=== PATIENT | male | born 1945 | race Caucasian/White ===

== ENCOUNTER 2017-09-01 16:31 | Emergency (ER) | payer MEDICARE, OTHER ==
--- NOTE | 2017-09-01 17:33 | ED Physician Documentation ---
PD HPI URI - Stated complaint Stated Complaint: FEVER,COUGH,BODY ACHES - Chief complaint Chief Complaint: Resp - History obtained from History obtained from: Patient - History of Present Illness Timing - onset: How many weeks ago (2) Timing duration: Weeks (2) Timing details: Gradual onset, Still present (has had cough and congestion for 2 weeks and seen by PCP and got Rx for Zpack (no other meds) and is feeling worse, not improved.) Associated symptoms: Productive cough, Dyspnea. No: Fever, Sore throat, Hemoptysis, NVD Contributing factors: No: Sick contact, Travel, Immunocompromised Similar symptoms before: Has not had sx before Recently seen: Clinic Review of Systems Constitutional: reports: Myalgias, Fatigue. denies: Fever, Weight Loss Nose: reports: Congestion. denies: Rhinorrhea / runny nose Throat: denies: Sore throat Cardiac: denies: Chest pain / pressure, Palpitations Respiratory: reports: Dyspnea, Cough. denies: Wheezing GI: denies: Nausea, Vomiting, Diarrhea Musculoskeletal: denies: Extremity swelling Neurologic: reports: Generalized weakness. denies: Focal weakness, Numbness, Near syncope PD PAST MEDICAL HISTORY - Past Medical History Past Medical History: Yes Cardiovascular: Coronary artery disease, [place] Respiratory: Pneumonia - Past Surgical History Past Surgical History: Yes General: Other Cardiovascular: Coronary stent - Present Medications Home Medications: Ambulatory Orders Medication Instructions Recorded Confirmed Atorvastatin Calcium 40 mg PO DAILY 05/21/15 05/21/15 Carvedilol [Coreg] 6.25 mg PO BID 05/21/15 05/21/15 Clopidogrel [Plavix] 75 mg PO DAILY 05/21/15 05/21/15 Albuterol Sulf [Ventolin Hfa 1 - 2 puffs INH Q4HR PRN #1 inhaler 09/01/17 Inhaler] Apixaban [Eliquis] 5 mg BID 09/01/17 09/01/17 Dexamethasone [Decadron] 4 mg PO DAILY #5 tablet 09/01/17 Doxycycline Monohydrate 100 mg PO BID #14 tablet 09/01/17 guaiFENesin/CODEINE [Robitussin AC] 10 ml PO Q6H PRN #240 ml 09/01/17 - Allergies Allergies/Adverse Reactions: Allergies Allergy/AdvReac Type Severity Reaction Status Date / Time No Known Drug Allergies Allergy Verified 05/21/15 06:44 - Social History Does the pt smoke?: No Smoking Status: Never smoker Does the pt drink ETOH?: Yes Does the pt have substance abuse?: Yes Substance Use and Type: Marijuana - Immunizations Immunizations are current?: Yes - POLST Patient has POLST: No PD ED PE NORMAL - Vitals Vital signs reviewed: Yes - General General: Alert and oriented X 3, No acute distress, Well developed/nourished - HEENT HEENT: Ears normal, Moist mucous membranes, Pharynx benign - Neck Neck: Supple, no meningeal sign, No adenopathy - Cardiac Cardiac: RRR, No murmur - Respiratory Respiratory: Clear bilaterally - Abdomen Abdomen: Soft, Non tender - Derm Derm: Normal color, Warm and dry - Extremities Extremities: No deformity, No tenderness to palpate, Normal ROM s pain, No edema , No calf tenderness / cord - Neuro Neuro: Alert and oriented X 3, No motor deficit, Normal speech Results - Vitals Vitals: Oxygen O2 Source Room air - Rads (name of study) chest xray Radiology: Prelim report reviewed, EMP read contemporaneously (no pneumonia) PD MEDICAL DECISION MAKING - ED course Complexity details: reviewed results (no pneumonia), considered differential, d/ w patient Departure - Departure Disposition: 01 Home, Self Care Clinical Impression: Upper respiratory infection Qualifiers: URI type: unspecified URI Qualified Code(s): J06.9 - Acute upper respiratory infection, unspecified Condition: Stable Record reviewed to determine appropriate education?: Yes Instructions: ED Upper Resp Infec Abx Tx Prescriptions: Albuterol Sulf [Ventolin Hfa Inhaler] 1 - 2 puffs INH Q4HR PRN #1 inhaler PRN Reason: Shortness Of Air/Wheezing Dexamethasone [Decadron] 4 mg PO DAILY #5 tablet Doxycycline Monohydrate 100 mg PO BID #14 tablet guaiFENesin/CODEINE [Robitussin AC] 10 ml PO Q6H PRN #240 ml PRN Reason: Cough Comments: Use albuterol inhaler 2-3 puffs 4 times a day the next 7-10 days and extra doses as needed for wheezing and cough. Cough medicine as needed. Decadron steroid anti-inflammatory to decrease irritation of the bronchioles daily for 5 more days. This will help the coughing and breathing. Doxycycline twice daily for a week for potential bacterial infection. Recheck if not improving over the next several days to week. Discharge Date/Time: 09/01/17 19:09
[2017-09-01] MEDS ORDERED: ALBUTEROL NEB 2.5 MG/3 ML INH STA (17:52)
[2017-09-01] MEDS ORDERED: DEXAMETHASONE 10 MG/ML VIAL PO STA (17:52)
[2017-09-01] MEDS ORDERED: BENZONATATE 100 MG CAPSULE PO STA (17:52)
[2017-09-01 18:36] VITALS: BP 151/94
--- NOTE | 2017-09-01 18:38 | XRAY Preliminary Report ---
Exam: XR CHEST 2 VIEW X-RAY IMPRESSION: Normal 2-view chest radiography. [facility] SITE ID: [id number]
--- NOTE | 2017-09-01 18:59 | XRAY Report ---
EXAM: CHEST RADIOGRAPHY EXAM DATE: 09/01/2017 06:21 PM. CLINICAL HISTORY: Cough and dyspnea. COMPARISON: 05/21/2015. TECHNIQUE: 2 views. FINDINGS: Lungs/Pleura: No focal opacities evident. No pleural effusion. No pneumothorax. Normal volumes. Mediastinum: Heart and mediastinal contours are unremarkable. Other: None. IMPRESSION: Normal 2-view chest radiography. [facility] Referring Provider Line: [phone] SITE ID: [id number]
== END 2017-09-01 19:09 | disposition home or self-care (01) ==
LOC: ED 16:31
DX: J06.9 Acute upper respiratory infection, unspecified (principal); I25.10 Atherosclerotic heart disease of native coronary artery without angina pectoris; I25.2 Old myocardial infarction; Z79.01 Long term (current) use of anticoagulants
CPT/HCPCS: 71046; 94640; 94664; 99283; A9270

== ENCOUNTER 2019-12-10 08:00 | Outpatient (CLI) | payer MEDICARE, OTHER | END 2019-12-10 23:59 | disposition home or self-care (01) | LOC: LAB.WCP 08:00 | PROVIDERS: ATTEND Family Medicine | DX: R10.9 Unspecified abdominal pain (principal) | CPT/HCPCS: 81002 ==

== ENCOUNTER 2019-12-10 11:00 | Emergency (ER) | payer MEDICARE, OTHER ==
--- NOTE | 2019-12-10 11:05 | ED Physician Documentation ---
PD HPI ABD PAIN - Stated complaint Stated Complaint: MALE - History obtained from History obtained from: Patient - History of Present Illness Timing - onset: How many days ago (few) Timing - duration: Days (few) Timing - details: Gradual onset, Still present Quality: Cramping, Aching, Pain Location: Suprapubic, LLQ Radiation: No: Chest, Lower back Improved by: No: Eating, BM Worsened by: Moving, Palpation. No: Eating Associated symptoms: Nausea. No: Fever, Vomiting, Diarrhea, Constipation Similar symptoms before: Has not had sx before Review of Systems Constitutional: denies: Fever, Chills Nose: denies: Rhinorrhea / runny nose, Congestion Throat: denies: Sore throat Respiratory: denies: Cough GI: reports: Abdominal Pain, Nausea. denies: Vomiting, Constipation, Diarrhea Skin: denies: Rash, Lesions PD PAST MEDICAL HISTORY - Past Medical History Cardiovascular: Coronary artery disease, [place] Respiratory: Pneumonia - Past Surgical History Past Surgical History: Yes General: Other Cardiovascular: Coronary stent - Present Medications Home Medications: Ambulatory Orders Medication Instructions Recorded Confirmed Atorvastatin Calcium 40 mg PO DAILY 05/21/15 05/21/15 Carvedilol [Coreg] 6.25 mg PO BID 05/21/15 05/21/15 Clopidogrel [Plavix] 75 mg PO DAILY 05/21/15 05/21/15 Albuterol Sulf [Ventolin Hfa 1 - 2 puffs INH Q4HR PRN #1 inhaler 09/01/17 Inhaler] Apixaban [Eliquis] 5 mg BID 09/01/17 09/01/17 Doxycycline Monohydrate 100 mg PO BID #14 tablet 09/01/17 dexAMETHasone [Decadron] 4 mg PO DAILY #5 tablet 09/01/17 guaiFENesin/CODEINE [Robitussin AC] 10 ml PO Q6H PRN #240 ml 09/01/17 Cephalexin [Keflex] 500 mg PO TID #21 capsule 12/10/19 Oxycodone HCl 5 mg PO Q4H PRN #20 tablet 12/10/19 metroNIDAZOLE [Flagyl] 500 mg PO BID #14 tablet 12/10/19 - Allergies Allergies/Adverse Reactions: Allergies Allergy/AdvReac Type Severity Reaction Status Date / Time No Known Drug Allergies Allergy Verified 12/10/19 11:10 - Social History Does the pt smoke?: No Smoking Status: Never smoker Does the pt drink ETOH?: Yes Does the pt have substance abuse?: Yes - Immunizations Immunizations are current?: Yes - POLST Patient has POLST: No PD ED PE NORMAL - Vitals Vital signs reviewed: Yes - General General: Alert and oriented X 3, Well developed/nourished, Other (does appear uncomfortable) - HEENT HEENT: Pharynx benign - Neck Neck: Supple, no meningeal sign, No adenopathy - Cardiac Cardiac: RRR, No murmur - Respiratory Respiratory: Clear bilaterally - Abdomen Abdomen: Normal bowel sounds, Soft, Non distended, No organomegaly, Other (Under in the left lower quadrant and suprapubic area with some local guarding and mild percussion tenderness but no rebound. No referred tenderness to the rest of the abdomen. No CVA tenderness.) - Male Male : Deferred - Rectal Rectal: Deferred - Back Back: No CVA TTP - Derm Derm: Normal color, Warm and dry, No rash - Extremities Extremities: Normal ROM s pain, No edema, No calf tenderness / cord - Neuro Neuro: Alert and oriented X 3, No motor deficit, Normal speech Results - Vitals Vitals: Vital Signs - 24 hr 12/10/19 12/10/19 12/10/19 11:10 12:00 13:00 Temperature 36.5 C Heart Rate 100 69 68 Respiratory 18 14 14 Rate Blood Pressure 144/80 H 124/71 137/82 H O2 Saturation 100 100 99 12/10/19 13:30 Temperature Heart Rate 61 Respiratory 16 Rate Blood Pressure 120/79 O2 Saturation 99 Oxygen O2 Source Room air - Labs Labs: Laboratory Tests 12/10/19 12/10/19 12/10/19 11:14 11:14 11:14 WBC 8.9 RBC 3.96 L Hgb 13.3 L Hct 39.7 L MCV 100.3 H MCH 33.6 H MCHC 33.5 RDW 13.3 Plt Count 182 MPV 10.1 Neut # (Auto) 5.9 Lymph # (Auto) 1.6 [place] # (Auto) 1.2 H Eos # (Auto) 0.1 Baso # (Auto) 0.0 Absolute Nucleated RBC 0.00 Nucleated RBC % 0.0 PT 18.5 H INR 1.7 H APTT 34.1 H Sodium 135 Potassium 4.7 Chloride 101 Carbon Dioxide 26 Anion Gap 8.0 BUN 33 H Creatinine 1.6 H Estimated GFR (MDRD) 42 L Glucose 109 H Calcium 9.4 Magnesium 2.0 Total Bilirubin 1.1 H AST 16 ALT 17 Alkaline Phosphatase 60 Total Protein 7.6 Albumin 3.9 Globulin 3.7 Albumin/Globulin Ratio 1.1 Lipase 29 Urine Color Urine Clarity Urine pH Ur Specific [place] Urine Protein Urine Glucose (UA) Urine Ketones Urine Occult Blood Urine Nitrite Urine Bilirubin Urine Urobilinogen Ur Leukocyte Esterase Ur Microscopic Review Urine Culture Comments 12/10/19 11:33 WBC RBC Hgb Hct MCV MCH MCHC RDW Plt Count MPV Neut # (Auto) Lymph # (Auto) [place] # (Auto) Eos # (Auto) Baso # (Auto) Absolute Nucleated RBC Nucleated RBC % PT INR APTT Sodium Potassium Chloride Carbon Dioxide Anion Gap BUN Creatinine Estimated GFR (MDRD) Glucose Calcium Magnesium Total Bilirubin AST ALT Alkaline Phosphatase Total Protein Albumin Globulin Albumin/Globulin Ratio Lipase Urine Color YELLOW Urine Clarity CLEAR Urine pH 5.5 Ur Specific [place] 1.020 Urine Protein NEGATIVE Urine Glucose (UA) NEGATIVE Urine Ketones NEGATIVE Urine Occult Blood NEGATIVE Urine Nitrite NEGATIVE Urine Bilirubin NEGATIVE Urine Urobilinogen 0.2 (NORMAL) Ur Leukocyte Esterase NEGATIVE Ur Microscopic Review NOT INDICATED Urine Culture Comments NOT INDICATED - Rads (name of study) abd/pelvic CT Radiology: Prelim report reviewed (. There is descending colon diverticula with diverticulitis. No abscess nor perforation.), See rad report PD MEDICAL DECISION MAKING - ED course Complexity details: reviewed results (Diverticulitis and the patient would like to try outpatient therapy.), re-evaluated patient (Is moderately improved with some IV medication. Will re-dose for further improvement.), considered differential (Tender diverticulitis versus kidney stone versus UTI or other cause.), d/w patient Departure - Departure Disposition: 01 Home, Self Care Clinical Impression: Lower abdominal pain, Acute diverticulitis Condition: Stable Record reviewed to determine appropriate education?: Yes Instructions: ED Diverticulitis Prescriptions: metroNIDAZOLE [Flagyl] 500 mg PO BID #14 tablet Cephalexin [Keflex] 500 mg PO TID #21 capsule Oxycodone HCl 5 mg PO Q4H PRN #20 tablet PRN Reason: Pain Comments: CT scan shows acute diverticulitis without any signs of perforation or abscess. At this point we can treated outpatient with antibiotics as directed for a week. Continue your usual medications at home. Use Tylenol 500 mg 4 times a day for pain and add oxycodone every 4 hours if needed for worse pain. Add stool softener if you are feeling constipated. Recheck if not improving well over the next several days and resolved within 4 to 5 days. Return if worsening. Discharge Date/Time: 12/10/19 13:48
[2019-12-10] MEDS ORDERED: SODIUM CHLORIDE 0.9% 1,000 ML IV STA (11:15)
[2019-12-10] MEDS ORDERED: ONDANSETRON 4 MG/2 ML VIAL IVP STA (11:15)
[2019-12-10] MEDS ORDERED: HYDROmorphone 1 MG/ML CARPUJECT IVP STA ×2 (11:15→13:25)
[2019-12-10 11:24] LABS: BASOPHILS % (AUTO) 0.3 %; EOSINOPHILS # (AUTO) 0.1 10^3/uL (0.0-0.7); EOSINOPHILS % (AUTO) 0.9 %; HGB - HEMOGLOBIN 13.3 g/dL (14.0-18.0); LYMPHOCYTES # (AUTO) 1.6 10^3/uL (1.5-3.5); LYMPHOCYTES % (AUTO) 18.4 %; MEAN CORPUSCULAR HEMOGLOBIN 33.6 pg (27.0-31.0); MEAN CORPUSCULAR HGB CONC 33.5 g/dL (32.0-36.0); MEAN CORPUSCULAR VOLUME 100.3 fL (80.0-94.0); MEAN PLATELET VOLUME 10.1 fL (7.4-11.4); MONOCYTES # (AUTO) 1.2 10^3/uL (0.0-1.0); MONOCYTES % (AUTO) 13.8 %; NEUTROPHILS # (AUTO) 5.9 10^3/uL (1.5-6.6); NEUTROPHILS % (AUTO) 66.2 %; PLT - PLATELET COUNT 182 10^3/uL (130-450); RED BLOOD COUNT 3.96 10^6/uL (4.70-6.10); RED CELL DISTRIBUTION WIDTH 13.3 % (12.0-15.0); WHITE BLOOD COUNT 8.9 x10^3/uL (4.8-10.8)
[2019-12-10] MEDS ORDERED: IOVERSOL 320 100 ML VIAL IVP ONE ×2 (11:29→13:32)
[2019-12-10 11:30] LABS: INR 1.7 (0.8-1.2); PT - PROTHROMBIN TIME 18.5 secs (9.9-12.6)
[2019-12-10 11:37] LABS: PARTIAL THROMBOPLASTIN TIME 34.1 secs (24.9-33.3)
[2019-12-10 11:40] LABS: ALBUMIN 3.9 g/dL (3.2-5.5); ALBUMIN/GLOBULIN RATIO 1.1 (1.0-2.2); BILIRUBIN,TOTAL 1.1 mg/dL (0.2-1.0); CALCIUM 9.4 mg/dL (8.5-10.3); CREATININE 1.6 mg/dL (0.6-1.2); TOTAL PROTEIN 7.6 g/dL (6.7-8.2)
[2019-12-10 11:41] LABS: BILIRUBIN,URINE NEGATIVE (NEGATIVE); GLUCOSE, URINE (UA) NEGATIVE (NEGATIVE); KETONES,URINE (UA) NEGATIVE (NEGATIVE); LEUKOCYTE ESTERASE, URINE NEGATIVE (NEGATIVE); NITRITE,URINE NEGATIVE (NEGATIVE); OCCULT BLOOD,URINE NEGATIVE (NEGATIVE); PH,URINE 5.5 PH (5.0-7.5); PROTEIN,URINE NEGATIVE (NEGATIVE); UROBILINOGEN,URINE 0.2 (NORMAL) E.U./dL (NORMAL)
[2019-12-10 11:43] LABS: CLARITY,URINE CLEAR (CLEAR)
--- NOTE | 2019-12-10 12:25 | CT Report ---
PROCEDURE: Abdomen/Pelvis W INDICATIONS: RLQ Abdominal pain, appendicitis suspected CONTRAST: IV CONTRAST: Optiray 320 ml: 100 PO CONTRAST: *NO PO CONTRAST TECHNIQUE: After the administration of nonionic contrast, 5 mm thick sections acquired from the diaphragms to th e symphysis. 5 mm thick coronal and sagittal reformats were acquired. For radiation dose reduction, the following was used: automated exposure control, adjustment of mA and/or kV according to patient size. COMPARISON: None. FINDINGS: Image quality: Excellent. ABDOMEN: Lung bases: Lung bases are clear. Heart size is normal. Solid organs: Liver and spleen are normal in size and enhancement. Gallbladder appears normal Bili rosette system is non dilated. Pancreas enhances normally. No adrenal nodules. Kidneys demonstrate nor mal size and enhancement, without hydronephrosis. Peritoneum and bowel: Bowel loops demonstrate normal wall thickness and caliber. No free fluid or a ir. Nodes and vessels: No retroperitoneal or mesenteric adenopathy by size criteria. Aorta and inferior vena cava are normal in size. Miscellaneous: No ventral hernias. PELVIS: Genitourinary: Bladder wall thickness is normal. Miscellaneous: No inguinal hernias or adenopathy. Normal appendix found right lower quadrant. Exten sive diverticulosis present involving the sigmoid colon, and there is definite acute diverticulitis w ithout peridiverticular abscess centered at the left lower quadrant, extending to the midline and sli ghtly beyond. Bones: No suspicious bony lesions. No vertebral body compression fractures. IMPRESSION: Normal appendix found, no acute appendicitis is present. There is, however, acute divert iculitis without peridiverticular abscess involving the sigmoid colon which demonstrates extensive di verticulosis in addition to the acute inflammatory process. Reviewed by: Cameron Lee MD on 12/10/2019 12:24 PM PDT Approved by: Cameron Lee MD on 12/10/2019 12:24 PM PDT Station ID: [id number]
[2019-12-10] MEDS ORDERED: metroNIDAZOLE 500 MG/100 ML 500 MG/100 ML BAG IV ONE (12:34)
[2019-12-10] MEDS ORDERED: cefTRIAXone 1 GM VIAL IVP STA (12:34)
[2019-12-10] MEDS ORDERED: DEXAMETHASONE 10 MG/ML VIAL IVP STA (12:53)
[2019-12-10] MEDS ORDERED: KETOROLAC 15 MG/ML VIAL IVP STA (13:26)
[2019-12-10 13:36] VITALS: BP 120/79
== END 2019-12-10 13:48 | disposition home or self-care (01) ==
LOC: ED 11:00
DX: K57.92 Diverticulitis of intestine, part unspecified, without perforation or abscess without bleeding (principal); I25.10 Atherosclerotic heart disease of native coronary artery without angina pectoris; I25.2 Old myocardial infarction; Z95.5 Presence of coronary angioplasty implant and graft; R10.9 Unspecified abdominal pain
CPT/HCPCS: 36415; 74177; 80053; 81002; 81003; 83690; 83735; 85025; 85610; 85730; 96361; 96365; 96375; 99284; 99285; Q9967; 81001; 87086

== ENCOUNTER 2022-03-16 16:20 | Outpatient (CLI) | payer MEDICARE, OTHER ==
--- NOTE | 2022-03-16 21:49 | XRAY Report ---
PROCEDURE: Ankle 3 View RT INDICATIONS: EDEMA OF RIGHT LOWER LEG TECHNIQUE: 3 views of the ankle were acquired. COMPARISON: None FINDINGS: Bones: No fractures or dislocations. Ankle mortise is normally aligned. Mild degenerative spurring at the tibiotalar articulation. There is pes equinus deformity of the hindfoot. No suspicious bony le sions. Soft tissues: No tibiotalar joint effusion. Achilles tendon appears normal. Moderate periarticular soft tissue swelling. There is heavy arterial atherosclerotic calcification and scattered areas of v enous phleboliths. Calcific tendinitis involving the distal Achilles tendon. IMPRESSION: 1. Heavy calcification of peripheral artery disease. 2. Venous phleboliths suggesting venous stasis. 3. Mild tibiotalar degeneration. Reviewed by: Alix Baltazar MD on 03/16/2022 9:48 PM PST Approved by: Alix Baltazar MD on 03/16/2022 9:48 PM PST Station ID: [id number]
== END 2022-03-16 16:21 | disposition home or self-care (01) ==
LOC: DI.S 16:20
PROVIDERS: ATTEND Physician Assistant
DX: I73.9 Peripheral vascular disease, unspecified (principal); M19.071 Primary osteoarthritis, right ankle and foot

== ENCOUNTER 2023-03-05 08:00 | Outpatient (CLI) | payer MEDICARE, OTHER | END 2023-03-05 08:01 | disposition home or self-care (01) | LOC: LAB.S 08:00 | PROVIDERS: ATTEND Physician Assistant | DX: J20.8 Acute bronchitis due to other specified organisms (principal) ==

== ENCOUNTER 2023-10-02 07:17 | Outpatient (CLI) | payer MEDICARE, OTHER ==
--- NOTE | 2023-10-02 11:26 | XRAY Report ---
PROCEDURE: Ankle 3+V RT INDICATIONS: XRAY FOOT AND ANKLE TECHNIQUE: 3 views of the ankle were acquired. COMPARISON: X-ray foot 10/02/2023, x-ray ankle 03/16/2022 FINDINGS: Bones: No fractures or dislocations. Ankle mortise is normally aligned. No suspicious bony lesions . Mild arthritic changes within the midfoot and tibiotalar joint space. Calcaneal spur is present. Soft tissues: No tibiotalar joint effusion. Achilles tendon appears normal. IMPRESSION: Arthritic changes as above. No visualized acute fracture or dislocation. However, occult injury cannot be excluded. Recommend kailee rt interval imaging follow-up in 7-10 days as clinically indicated for additional evaluation. Reviewed by: Richelle Wagoner MD on 10/02/2023 11:24 AM PDT Approved by: Richelle Wagoner MD on 10/02/2023 11:24 AM PDT Station ID: [id number]
--- NOTE | 2023-10-02 11:30 | XRAY Report ---
PROCEDURE: Foot 3+V RT INDICATIONS: XRAY FOOT AND ANKLE TECHNIQUE: 3 views of the foot were acquired. COMPARISON: X-ray foot 10/02/2023, x-ray ankle 03/16/2022 FINDINGS: Bones: No fractures or dislocations. No suspicious bony lesions. Flexion deformities are present a t the PIP joints of the third through fifth digits. Degenerative changes are present the tibiotalar j oint space as well as midfoot. Soft tissues: No tibiotalar joint effusion. Achilles tendon appears normal. IMPRESSION: Arthritic changes as above. No visualized acute fracture or dislocation. However, occult injury cannot be excluded. Recommend kailee rt interval imaging follow-up in 7-10 days as clinically indicated for additional evaluation. Reviewed by: Richelle Wagoner MD on 10/02/2023 11:28 AM PDT Approved by: Richelle Wagoner MD on 10/02/2023 11:28 AM PDT Station ID: [id number]
== END 2023-10-02 07:18 | disposition home or self-care (01) ==
LOC: DI.S 07:17
PROVIDERS: ATTEND Emergency Medicine
DX: M19.071 Primary osteoarthritis, right ankle and foot (principal)